=== PATIENT | female | born 2000 | race Caucasian/White ===

== ENCOUNTER 2020-04-08 19:01 | Emergency (ER) | payer OTHER ==
[~2020-04-08] VITALS: Ht 157.5 cm; Wt 45.4 kg
[~2020-04-08 19:01] MED LIST: CEFDINIR300 MG PO; HYDROCODONE-AP1 EAC6 PO
[2020-04-08 19:06] VITALS: BP 125/79
[2020-04-08] MEDS ORDERED: ACTICIN 5% CREA60 G1 TOP (19:39)
[2020-04-08] MEDS ORDERED: DOXYCYCLINE 10100 MG PO (19:39)
== END 2020-04-08 19:51 | disposition home or self-care (01) ==
LOC: M.ERS 19:01
DX: R21 Rash and other nonspecific skin eruption (principal); F41.9 Anxiety disorder, unspecified

== ENCOUNTER 2020-05-29 18:11 | Emergency (ER) | payer OTHER ==
[~2020-05-29] VITALS: Ht 157.5 cm; Wt 47.6 kg
[~2020-05-29 18:11] MED LIST changes: +ACTICIN 5% CREA60 G1 TOP; +DOXYCYCLINE 10100 MG PO
[2020-05-29 18:29] LABS: URINE BILIRUBIN NEGATIVE (Negative); URINE BLOOD 3+ (Negative); URINE CLARITY SL CLOUDY; URINE COLOR YELLOW; URINE GLUCOSE-RANDOM NEGATIVE (Negative); URINE KETONES NEGATIVE (Negative); URINE NITRITE-REFLEX NEGATIVE (Negative); URINE PROTEIN 1+ (Negative); URINE SPECIFIC GRAVITY 1.025 (1.005-1.030); URINE UROBILINOGEN 0.2 E.U./dl (0.2-1.0)
[2020-05-29 18:32] LABS: URINE LEUKOCYTES-REFLEX 3+ (Negative)
[2020-05-29 18:45] LABS: BACTERIA-REFLEX 1-9 Few /HPF (None Seen)
[2020-05-29 18:46] LABS: CRYSTALS None Seen /LPF (None Seen); MUCUS 0-3 Light strn/LPF (None Seen); SQUAMOUS >10 Many /LPF (0-3)
[2020-05-29 18:47] LABS: CASTS None Seen /LPF (None Seen)
[2020-05-29] MEDS ORDERED: VAGISIL CREAM28 G1 TOP (21:29)
[2020-05-29] MEDS ORDERED: DIFLUCAN150 M1 PO (21:29)
[2020-05-29] MEDS ORDERED: KEFLEX500 M1 PO (21:29)
[2020-05-29 21:47] VITALS: BP 122/64
== END 2020-05-29 21:47 | disposition home or self-care (01) ==
LOC: M.ERS 18:11
PROVIDERS: Nurse Practitioner Family
DX: N39.0 Urinary tract infection, site not specified (principal); N89.8 Other specified noninflammatory disorders of vagina